=== PATIENT | male | born 1985 | race African-American/Black ===

== ENCOUNTER 2023-01-21 08:02 | Outpatient (CLI) | payer BC, SELFPAY ==
--- NOTE | 2023-02-06 17:11 | WPDHOMESLEEP ---
Sleep Study - Home Unattended Date of Study: 01/21/23 Ordering Provider: STEVEN Rene Interpreting Provider: Nichole Gibbs MD Home Sleep Study Type: Watch PAT Height: 1.68 m Weight: 117.934 kg Body Mass Index: 41.9 Neck Circumference (inches): 17.5 [place]: 13 Reason for Sleep Study Hypersomnolence, loud snoring Sleep History Cb Kincaid II is a 37-year-old man with loud snoring and restlessness. He has witnessed apneas. He has difficulty falling asleep and a difficult time waking in the morning. He frequently awakens from sleep feeling short of breath. He frequently awakens at night with heartburn, belching coughing. He always snores loudly enough that others complain. He frequently has difficulty sleeping with a cold. He always wakes up gasping for breath at night. He frequently has breathing problems at night observed by others. He frequently sweats excessively at night and notices his heart pounding or beating irregularly at night. He frequently falls asleep during the day, occasionally falls asleep involuntarily, never falls asleep while driving. He rarely has loss of muscle tone with strong emotion. He always has problems during the day at work due to excessive sleepiness. 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 He occasionally feels paralyzed on waking or falling asleep. He frequently has vivid dreamlike scenes on waking or falling asleep. He does not feel afraid to go to sleep. He occasionally has nightmares. He occasionally remembers his dreams. He frequently has racing thoughts. He occasionally feels sad, depressed or anxious. He frequently has muscular tension. He frequently kicks at night and has crawling and aching feelings in his legs. He frequently has leg pain during the night. He occasionally has morning jaw pain. He rarely grinds his teeth at night. He frequently is bothered by pain during the day. He rarely is awakened by pain at night. He constantly wakes up feeling stiff in the morning sore or achy muscles and with pain in the neck and spine. He has memory problems, depression, fatigue, insomnia and concentration difficulties. Normal bedtime is 9:30 p.m. falling asleep within 30 minutes, typically waking 1-3 times during the night. It may take him 5 minutes to return to sleep. He wakes the morning between 4 and 4:30 a.m.. He on weekends he goes to bed at 11:00 p.m. and wakes at 6:00 a.m.. He estimates getting 6 hours of sleep routinely. He generally does not take naps in the afternoon or evening. A short nap lasting 10 or 15 minutes might be refreshing. He is usually drowsy for an hour after waking. He feels better in the evening compared to other times a day. Habits: Never smoked tobacco. Caffeine 150-900 mg a day. Alcohol: 1 can daily on average. Recreational substance: none. FORMERLY [facility] Past Medical History Medical History (Updated 02/06/23 @ 18:52 by Nichole Gibbs MD) Asthma Esophageal dilatation Social History Social History Social History: He is a never smoker. Drinks around 6 drinks per week, socially on the weekends. No marijuana or illicit substance use. 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 Smoking status: Never smoker Medications Home Medications Medication Instructions Recorded Confirmed Type albuterol sulfate 90 mcg/actuation 1 puff inhalation Q4H PRN 10/23/22 10/23/22 History aerosol inhaler (Ventolin HFA) cetirizine 10 mg capsule (Zyrtec) 10 mg PO DAILY PRN 10/23/22 10/23/22 History fluticasone 500 mcg-salmeterol 50 2 inh inhalation Q12H 10/23/22 10/23/22 History mcg/dose blistr powdr for inhalation (Advair Diskus) fluticasone propionate 50 1 spray intranasal DAILY 10/23/22 10/23/22 History mcg/actuation nasal spray,suspension (Flonase Allergy Relief) Sleep Procedure The sleep study was completed usi
[2023-02-06 17:14] VITALS: BMI 41.9
== END 2023-01-22 11:01 | disposition home or self-care (01) ==
PROVIDERS: Visit Provider Physician Assistant
DX: G47.10 Hypersomnia, unspecified (principal); G47.33 Obstructive sleep apnea (adult) (pediatric)
CPT/HCPCS: 95800